=== PATIENT | female | born 1985 | race African-American/Black ===

== ENCOUNTER 2022-07-07 22:20 | Inpatient (IN) | payer OTHER ==
[2022-07-07] MEDS ORDERED: ELECTROLYTE-148 SOLN 1,000 ML IV SCH (23:05)
[2022-07-07 23:49] LABS: BASO % 0.1 % (0-2.0); EOS % 1.6 % (0-4.5); HEMATOCRIT 34.8 % (32.4-45.2); HEMOGLOBIN 11.7 GM/dL (10.7-15.3); LYMPH % 12.6 % (8-40); MCH 29.7 pg (25.7-33.7); MCHC 33.6 g/dl (32.0-36.0); MEAN CELL VOLUME 88.6 fl (80-96); MEAN PLT VOLUME 10.2 fl (7.5-11.1); MONO % 7.1 % (3.8-10.2); NEUT % 78.6 % (42.8-82.8); PLATELET COUNT 185 10^3/uL (134-434); RBC 3.92 M/mm3 (3.60-5.2); RDW 13.4 % (11.6-15.6); WHITE BLOOD COUNT 11.8 K/mm3 (4.0-10.0)
[2022-07-07 23:55] LABS: INR 0.84 (0.83-1.09); PROTHROMBIN TIME (PATIENT) 9.8 SEC (9.7-13.0)
[2022-07-08 00:12] VITALS: BMI 28.0
[2022-07-08 00:42] LABS: CALCIUM 8.6 mg/dL (8.5-10.1)
[2022-07-08 00:44] LABS: BLOOD UREA NITROGEN 9.6 mg/dL (7-18)
[2022-07-08 00:47] LABS: CREATININE 0.7 mg/dL (0.55-1.3)
[2022-07-08 01:39] LABS: HIV INTERPRETATION NEGATIVE (NEGATIVE)
[2022-07-08] MEDS ORDERED: FENTANYL/BUPIVACAINE/NS/PF - PCEA - 50 ML DISP.SYRIN EP ONE (04:24)
[2022-07-08] MEDS ORDERED: OXYTOCIN 30 UNITS in 0.9% NS 30 UNIT/500 ML INFUS.BAG IVPB SCH (04:30)
[2022-07-08] MEDS ORDERED: ELECTROLYTE-148 SOLN 1,000 ML IV SCH (04:30)
[2022-07-08] MEDS ORDERED: NALOXONE HCL 0.4 MG/ML VIAL IVPUSH PRN (04:43)
[2022-07-08] MEDS ORDERED: BUPIVACAINE HCL/PF 0.25% (2.5MG/ML) 10 ML VIAL ONE (04:45)
[2022-07-08] MEDS ORDERED: FENTANYL/BUPIVACAINE/NS/PF - PCEA - 50 ML DISP.SYRIN EP SCH (04:45)
[2022-07-08] MEDS ORDERED: LIDOCAINE HCL 1% PRESERVATIVE FREE - 30ML VIAL ONE (05:19)
[2022-07-08] MEDS ORDERED: OXYTOCIN 20 UNITS in 0.9% NS 20 UNIT/1,000 ML INFUS.BAG IV ONE (05:19)
[2022-07-08] MEDS ORDERED: BISACODYL 10 MG SUPP.RECT RC PRN (05:52)
[2022-07-08] MEDS ORDERED: BENZOCAINE 28 GM HEMORRHOIDAL OINTMENT TP PRN (05:52)
[2022-07-08] MEDS ORDERED: WITCH HAZEL 50% (TUCKS) 40 PAD/JAR PAD TP PRN (05:52)
[2022-07-08] MEDS ORDERED: METHYLERGONOVINE MALEATE 0.2 MG/1 ML AMP IM PRN (05:52)
[2022-07-08] MEDS ORDERED: ACETAMINOPHEN 325 MG TABLET (FP) PO PRN (05:52)
[2022-07-08] MEDS ORDERED: BENZOCAINE 20% 57 GM BOTTLE TP PRN (05:52)
[2022-07-08] MEDS ORDERED: OXYTOCIN 20 UNITS in 0.9% NS 20 UNIT/1,000 ML INFUS.BAG IV SCH (06:00)
[2022-07-08] MEDS: FERROUS SO4 325 MG TABLET (FP) PO SCH ×3 (09:09→17:38)
[2022-07-08] MEDS ORDERED: FERROUS SO4 325 MG TABLET (FP) ONE (09:09)
[2022-07-08] MEDS: PRENATAL VITAMINS W/ FOLIC ACID TABLET (FP) PO SCH (10:28)
[2022-07-08] MEDS: oxyCODONE HCL 5 MG TABLET PO PRN (11:01)
[2022-07-08] MEDS: IBUPROFEN 600 MG TABLET (FP) PO PRN (16:10)
[2022-07-09] MEDS: oxyCODONE HCL 5 MG TABLET PO PRN ×2 (00:30→20:59)
[2022-07-09] MEDS: SIMETHICONE 80 MG TAB.CHEW (FP) PO PRN ×3 (00:31→20:59)
[2022-07-09] MEDS: IBUPROFEN 600 MG TABLET (FP) PO PRN (05:37)
[2022-07-09 08:35] LABS: BASO % 0.1 % (0-2.0); HEMATOCRIT 33.1 % (32.4-45.2); HEMOGLOBIN 11.2 GM/dL (10.7-15.3); LYMPH % 10.1 % (8-40); MCHC 33.7 g/dl (32.0-36.0); MEAN PLT VOLUME 10.3 fl (7.5-11.1); MONO % 7.9 % (3.8-10.2); NEUT % 80.9 % (42.8-82.8); PLATELET COUNT 176 10^3/uL (134-434); RBC 3.72 M/mm3 (3.60-5.2); RDW 13.3 % (11.6-15.6); WHITE BLOOD COUNT 15.3 K/mm3 (4.0-10.0)
[2022-07-09] MEDS: FERROUS SO4 325 MG TABLET (FP) PO SCH ×3 (08:46→17:47)
[2022-07-09] MEDS: PRENATAL VITAMINS W/ FOLIC ACID TABLET (FP) PO SCH (10:01)
[2022-07-09] MEDS ORDERED: SENNOSIDES/DOCUSATE COMBO (SENNA PLUS) TABLET (UD) PO PRN (22:00)
[2022-07-10] MEDS: IBUPROFEN 600 MG TABLET (FP) PO PRN (01:37)
[2022-07-10] MEDS: SIMETHICONE 80 MG TAB.CHEW (FP) PO PRN (06:26)
[2022-07-10] MEDS: oxyCODONE HCL 5 MG TABLET PO PRN (06:26)
[2022-07-10] MEDS: FERROUS SO4 325 MG TABLET (FP) PO SCH ×2 (08:24→11:46)
[2022-07-10 09:21] VITALS: BP 113/68; PULSE 77; RESP 18; TEMP 98.4
[2022-07-10] MEDS: PRENATAL VITAMINS W/ FOLIC ACID TABLET (FP) PO SCH (09:29)
== END 2022-07-10 12:45 | disposition home or self-care (01) | DRG 560 ==
LOC: JDEL 22:20 → JLDR 23:05 → J3W 07-08 09:20
PROVIDERS: ADMIT Obstetrics & Gynecology; ATTEND Obstetrics & Gynecology
PROC: 10E0XZZ Delivery of Products of Conception, External Approach (ICD-10-PCS; principal; 2022-07-08)
DX: O80 Encounter for full-term uncomplicated delivery (principal); Z3A.38 38 weeks gestation of pregnancy; Z37.0 Single live birth
CPT/HCPCS: 36415; 59409; 80048; 85025; 85461; 85610; 85730; 86780; 86850; 86900; 86901; 87389; C9803-CS; U0003; U0005